=== PATIENT | male | born 1965 | race Caucasian/White ===

== ENCOUNTER 2018-08-14 12:20 | Outpatient (CLI) | payer OTHER | END 2018-08-14 12:21 | disposition short-term general hospital (02) | LOC: EMS 12:20 | PROVIDERS: ATTEND Surgery | DX: M54.2 Cervicalgia (principal); M54.6 Pain in thoracic spine; M54.5 Low back pain; M25.552 Pain in left hip; M25.551 Pain in right hip; R10.2 Pelvic and perineal pain; R20.0 Anesthesia of skin; R20.2 Paresthesia of skin; M25.572 Pain in left ankle and joints of left foot; M25.571 Pain in right ankle and joints of right foot; V43.52XA Car driver injured in collision with other type car in traffic accident, initial encounter; Y92.414 Local residential or business street as the place of occurrence of the external cause; Y99.0 Civilian activity done for income or pay | CPT/HCPCS: A0425; A0429 ==